=== PATIENT | male | born 1995 | race Caucasian/White ===

== ENCOUNTER 2019-08-14 03:28 | Emergency (ER) | payer SELFPAY ==
[~2019-08-14] VITALS: Ht 177.8 cm; Wt 65.5 kg
[2019-08-14 04:10] VITALS: BP 138/79
[2019-08-14] MEDS ORDERED: PredniSONE 20 MG TABLET PO ONE (04:15)
[2019-08-14] MEDS ORDERED: DiphenhydrAMINE HCL 25 MG CAPSULE PO ONE (04:15)
== END 2019-08-14 05:15 | disposition home or self-care (01) ==
LOC: EMS 03:28
DX: L50.0 Allergic urticaria (principal); F17.210 Nicotine dependence, cigarettes, uncomplicated; F12.90 Cannabis use, unspecified, uncomplicated
CPT/HCPCS: 99283; 99406; J7512